=== PATIENT | female | born 1945 | race Caucasian/White ===

== ENCOUNTER 2018-08-15 10:49 | Emergency (ER) | payer OTHER ==
[~2018-08-15] VITALS: Ht 154.9 cm; Wt 84.4 kg
[~2018-08-15 10:49] MED LIST: AMOX1TAB12 PO; AVALIDE 150-12.1 TA1 PO; GLUCOPHAGE XR500 MG PO; INSULIN; LISINOPRIL20 MG PO; NEURONTIN250 MG/5 M PO; TESSALON PERLE100 MG PO; TUSSI PRES-B L120 M1 PO; ZANTAC15 MG/ML PO
[2018-08-15] MEDS ORDERED: LANTUS SOL100 UNIT/1 SQ (11:15)
[2018-08-15] MEDS ORDERED: ULTRACET PO (15:17)
== END 2018-08-15 16:23 | disposition home or self-care (01) ==
LOC: ER 10:49
DX: K57.32 Diverticulitis of large intestine without perforation or abscess without bleeding (principal); R10.32 Left lower quadrant pain